=== PATIENT | male | born 1955 | race Caucasian/White ===

== ENCOUNTER 2016-08-07 12:33 | Emergency (ER) | payer BC ==
[2016-08-07] MEDS ORDERED: Aspirin 81 MG Tab.Chew PO ONE (12:55)
[2016-08-07] MEDS ORDERED: Sodium Chloride 0.9% 10 ML Syringe FLUSH PRN (12:55)
[2016-08-07] MEDS ORDERED: Alum Hydrox/Mag Hydrox/Simeth 30 ML, Lidocaine 2% 15 ML PO ONE ×2 (12:55)
[2016-08-07] MEDS ORDERED: Nitroglycerin 0.4 MG Tab.SL SL ONE ×2 (12:56→13:48)
[2016-08-07] MEDS ORDERED: Sodium Chloride 0.9% 1,000 ML IV SCH (13:00)
--- NOTE | 2016-08-07 13:01 | EDM.PDOC ---
ED HISTORY OF PRESENT ILLNESS - General Chief Complaint: Chest Pain Stated Complaint: CHEST PAIN Time Seen by Provider: 08/07/16 12:42 Source of Information: Reports: Patient History Limitations: Reports: No limitations - History of Present Illness INITIAL COMMENTS - FREE TEXT/NARRATIVE: Patient is a 61-year-old male with a history of coronary disease and stent placement to the left LAD. States had a stress test completed 3 weeks ago with negative results. He is scheduled to have coronary angiogram this coming Friday to further evaluate concerns of blockage to his right coronary artery. Patient states he's been having chest discomfort intermittently over the past few weeks. States today he became nauseated and pain to his chest has increased with radiation to his neck and his left arm. He became diaphoretic. Pain is constant rated a 7/10. Describes the pain as a dull ache. It is worsened with taking a deep breath. Similar pain in the past with previous NE. Normally the pain will decrease with relaxing. Has taken 81 mg aspirin prior to arrival. Has not taking any additional medications. Again this that started approximately 10:00 this morning while sitting. Additional history of acid reflux and normally takes PPI. Denies any SOB of breath, dizziness, lightheadedness, hx DVT/PE, leg swelliing, recent long travel, recent hospitalization, recent surgery, hemoptysis, or cancer. PMH: DM Type 1, HTN. Hypercholesteremia. One kidney. - Related Data Allergies/ADRs: Allergies Allergy/AdvReac Type Severity Reaction Status Date / Time No Known Allergies Allergy Verified 08/12/14 07:21 Home Meds: Home Meds Aspirin [Halfprin] 81 mg PO DAILY 08/07/16 [History] Fosinopril [Monopril] 20 mg PO DAILY 08/07/16 [History] Nabumetone 2,000 mcg PO DAILY 08/07/16 [History] Omeprazole 20 mg PO DAILY 08/07/16 [History] Pregabalin [Lyrica] 100 mg PO TID 08/07/16 [History] Sertraline [Zoloft] 100 mg PO DAILY 08/07/16 [History] Simvastatin [Zocor] 10 mg PO DAILY 08/07/16 [History] Past Medical History HEENT History: Reports: Impaired vision Other HEENT History: wears eyeglasses Cardiovascular History: Reports: CAD, High cholesterol, Hypertension, Stents Other Cardiovascular History: LAD stent 2014. Gastrointestinal History: Reports: GERD Genitourinary History: Reports: Other (see below) Other Genitourinary History: born with only one kidney Musculoskeletal History: Reports: Arthritis, Back pain, chronic, Fracture Psychiatric History: Reports: Depression Endocrine/Metabolic History: Reports: Diabetes, type I Dermatologic History: Reports: Psoriasis - Infectious Disease History Infectious Disease History: Reports: Chicken pox, Measles, Mumps - Past Surgical History GI Surgical History: Reports: Cholecystectomy, Colonoscopy Social & Family History - Tobacco Use Smoking Status *Q: Former Smoker Used Tobacco, but Quit: Yes Month Tobacco Last Used: 1975 Second Hand Smoke Exposure: Yes - Caffeine Use Caffeine Use: Reports: Coffee - Recreational Drug Use Recreational Drug Use: No - Living Situation & Occupation Living situation: Reports: Occupation: employed ED ROS GENERAL - Review of Systems Review Of Systems: ROS reveals no pertinent complaints other than HPI. ED EXAM, GENERAL - Physical Exam Exam: See Below Exam Limited By: No limitations General Appearance: alert, WD/WN, no apparent distress Eye Exam: bilateral eye: PERRL Ears: hearing grossly normal Nose: normal inspection Throat/Mouth: Normal inspection, Normal voice, No airway compromise Head: atraumatic, normocephalic Neck: normal inspection, supple, other (no jvd) Respiratory/Chest: no respiratory distress, lungs clear, normal breath sounds, no accessory muscle use, chest non-tender Cardiovascular: normal peripheral pulses, regular rate, rhythm, no murmur Peripheral Pulses: 2+: radial (L), radial (R) GI/Abdominal: normal bowel sounds, soft, non tender, no organomegaly, no distention Back Exam: normal inspection. No: CVA tenderness (L), CVA tenderness (R) Extremities: normal inspection, non-tender, no pedal edema, normal capillary refill Neurological: alert, oriented, CN II-XII intact, normal cognition, no motor/ sensory deficits Psychiatric: normal affect, normal mood Skin Exam: Warm, Dry, Intact, Normal color Course - Vital Signs Last Recorded V/S: Last Vital Signs Temp 97.3 F 08/07/16 12:43 Pulse 60 08/07/16 12:43 Resp 20 08/07/16 12:43 BP 122/66 08/07/16 14:10 Pulse Ox 98 08/07/16 12:43 - Orders/Labs/Meds Orders: Active Orders 24 hr Category Date Time Status EKG 12 Lead [EKG Documentation Completion] [RC] STAT Care 08/07/16 12:42 Active EKG Documentation Completion [RC] STAT Care 08/07/16 14:31 Active EKG Documentation Completion [RC] STAT Care 08/07/16 14:41 Active Peripheral IV Care [RC] . DIRECTED Care 08/07/16 12:55 Active Peripheral IV Insertion Adult [OM.PC] Stat Oth 08/07/16 12:55 Ordered Labs: Laboratory Tests 08/07/16 08/07/16 08/07/16 Range/Units 12:45 12:45 12:45 WBC 6.34 (4.23-9.07) K/mm3 RBC 4.95 (4.63-6.08) M/mm3 Hgb 14.2 (13.7-17.5) gm/L Hct 42.9 (40.1-51.0) % MCV 86.7 (79.0-92.2) fl MCH 28.7 (25.7-32.2) pg MCHC 33.1 (32.2-35.5) g/dl RDW Std Deviation 42.3 (35.1-43.9) fL Plt Count 149 L (163-337) K/mm3 MPV 11.7 (9.4-12.3) fl Neut % (Auto) 77.0 H (34.0-67.9) % Lymph % (Auto) 13.7 L (21.8-53.1) % [place] % (Auto) 7.7 (5.3-12.2) % Eos % (Auto) 1.1 (0.8-7.0) Baso % (Auto) 0.2 (0.1-1.2) % Neut # (Auto) 4.88 (1.78-5.38) K/mm3 Lymph # (Auto) 0.87 L (1.32-3.57) K/mm3 [place] # (Auto) 0.49 (0.30-0.82) K/mm3 Eos # (Auto) 0.07 (0.04-0.54) K/mm3 Baso # (Auto) 0.01 (0.01-0.08) K/mm3 PT 10.5 (8.0-13.0) SECONDS INR 0.97 APTT (22-36) SECONDS Sodium 141 (136-145) mEq/L Potassium 4.8 (3.5-5.1) mEq/L Chloride 106 (98-107) mEq/L Carbon Dioxide 28 (21-32) mEq/L Anion Gap 11.8 (5-15) BUN 18 (7-18) mg/dL Creatinine 1.2 (0.7-1.3) mg/dL Est Cr Clr Drug Dosing 70.59 mL/min Estimated GFR (MDRD) > 60 (>60) mL/min BUN/Creatinine Ratio 15.0 (14-18) Glucose 130 H (74-106) mg/dL Calcium 8.7 (8.5-10.1) mg/dL Total Bilirubin 0.6 (0.2-1.0) mg/dL AST 24 (15-37) U/L ALT 30 (16-63) U/L Alkaline Phosphatase 103 (46-116) U/L CK-MB (CK-2) (0-3.6) ng/ml Troponin I (0.00-0.056) ng/mL C-Reactive Protein 1.5 H* (<1.0) mg/dL Total Protein 6.8 (6.4-8.2) g/dl Albumin 3.8 (3.4-5.0) g/dl Globulin 3.0 gm/dL Albumin/Globulin Ratio 1.3 (1-2) Lipase 50 L (73-393) U/L TSH 3rd Generation 1.700 (0.358-3.74) uIU/mL 08/07/16 08/07/16 08/07/16 Range/Units 12:45 12:45 12:45 WBC (4.23-9.07) K/mm3 RBC (4.63-6.08) M/mm3 Hgb (13.7-17.5) gm/L Hct (40.1-51.0) % MCV (79.0-92.2) fl MCH (25.7-32.2) pg MCHC (32.2-35.5) g/dl RDW Std Deviation (35.1-43.9) fL Plt Count (163-337) K/mm3 MPV (9.4-12.3) fl Neut % (Auto) (34.0-67.9) % Lymph % (Auto) (21.8-53.1) % [place] % (Auto) (5.3-12.2) % Eos % (Auto) (0.8-7.0) Baso % (Auto) (0.1-1.2) % Neut # (Auto) (1.78-5.38) K/mm3 Lymph # (Auto) (1.32-3.57) K/mm3 [place] # (Auto) (0.30-0.82) K/mm3 Eos # (Auto) (0.04-0.54) K/mm3 Baso # (Auto) (0.01-0.08) K/mm3 PT (8.0-13.0) SECONDS INR APTT 29 (22-36) SECONDS Sodium (136-145) mEq/L Potassium (3.5-5.1) mEq/L Chloride (98-107) mEq/L Carbon Dioxide (21-32) mEq/L Anion Gap (5-15) BUN (7-18) mg/dL Creatinine (0.7-1.3) mg/dL Est Cr Clr Drug Dosing mL/min Estimated GFR (MDRD) (>60) mL/min BUN/Creatinine Ratio (14-18) Glucose (74-106) mg/dL Calcium (8.5-10.1) mg/dL Total Bilirubin (0.2-1.0) mg/dL AST (15-37) U/L ALT (16-63) U/L Alkaline Phosphatase (46-116) U/L CK-MB (CK-2) 4.1 H (0-3.6) ng/ml Troponin I < 0.017 (0.00-0.056) ng/mL C-Reactive Protein (<1.0) mg/dL Total Protein (6.4-8.2) g/dl Albumin (3.4-5.0) g/dl Globulin gm/dL Albumin/Globulin Ratio (1-2) Lipase (73-393) U/L TSH 3rd Generation (0.358-3.74) uIU/mL Meds: Medications Discontinued Medications Generic Name Dose Route Start Last Admin Trade Name Freq PRN Reason Stop Dose Admin Aspirin 243 mg 08/07/16 12:55 08/07/16 13:15 Aspirin PO 08/07/16 12:56 243 mg ONETIME ONE Administration Al Hydroxide/Mg Hydroxide 30 0 ml 08/07/16 12:55 08/07/16 13:14 ml/ Lidocaine HCl 15 ml PO 08/07/16 12:56 30 ml ONETIME ONE Administration Fentanyl 100 mcg 08/07/16 13:46 08/07/16 14:11 Sublimaze IVPUSH 08/07/16 13:47 100 mcg ONETIME ONE Administration Sodium Chloride 1,000 mls @ 75 mls/hr 08/07/16 13:00 08/07/16 13:20 Normal Saline IV 75 mls/hr ASDIRECTED JENNY Administration Morphine Sulfate 2 mg 08/07/16 14:25 08/07/16 14:42 Morphine IVPUSH 08/07/16 14:26 2 mg ONETIME ONE Administration Nitroglycerin 0.4 mg 08/07/16 12:56 08/07/16 13:20 Nitrostat SL 08/07/16 12:57 0.4 mg ONETIME ONE Administration Nitroglycerin 0.4 mg 08/07/16 13:48 08/07/16 14:10 Nitrostat SL 08/07/16 13:49 0.4 mg ONETIME ONE Administration Sodium Chloride 10 ml 08/07/16 12:55 08/07/16 15:03 Saline Flush FLUSH 10 ml ASDIRECTED PRN Administration Keep Vein Open - Re-Assessments/Exams Free Text/Narrative Re-Assessment/Exam: Ordered IV with normal saline 75 mL per hour, aspirin 243, nitroglycerin 0.4 sublingual tabs, GI cocktail, CBC, chem 14, CRP, lipase, chest x-ray, EKG, troponin, TSH, PTT. We'll see how the discomfort responds to the nitroglycerin and GI cocktail. Must closely monitor BP if involving RCA. EKG revealed a sinus rhythm at a rate of 62 with a normal P axis. Left axis deviation noted. LA 142, QTC is 426. No acute ST changes noted. 08/07/16 13:45 Labs reviewed: CBC and chem 14 were essentially normal. CRP was mildly elevated 1.5. Lipase 50. TSH within normal limits. Troponin and CK -MB were ordered. Reassessment, pain has not improved. Ordered nitroglycerin tab 0.4 mg sublingual and fentanyl 100 mcg. Chest x-ray: Revealed mild cardiomegaly without increased pulmonary vascularization. No noted abnormalities to aortic arch or widening of mediastinum. No pneumothorax. 08/07/16 14:26 Toponin <0.017. Pain to chest 7/10, slightly worse. Ordered morphine 2 mg IVP. Vital signs stable: Left 130/75, Right 106/69. No tissues abnormalities or valvular disorders no history of aortic aneurysm. Ordered EKG. 08/07/16 14:30 Called [facility], vocational services specialist grab hooker is in the seed laboratory technician. He requests patient be transferred to the [facility] ER for further evaluation. Dr. Sorensen Emergency Physician has accepted the patient. 1430 Reassessment, patient has not received the morphine yet. States the discomfort to his chest has decreased to 5/10. Will obtain additional EKG. Discussed patient being transferred by air to [facility]. Patient refuses and would rather go by ground. 1450 Reassessment, chest pain 3/10 with morphine. Ambulance has been notified. 08/07/16 14:52 Repeat EKG sinus rhythm, normal P axis, borderline left axis deviation, rate of 55, LA interval 153, QTC 435, no acute ST changes noted. EKG obtained on the right side normal sinus rhythm at rate of 57, normal P axis , right ventricular hypertrophy, rate of 57, LA interval 53, QTC 430, no acute ST changes noted. [facility] Departure - Departure Time of Disposition: 14:54 Disposition: DC/Tfer to Acute Hospital 02 Reason for Transfer *Q: Other Condition: fair Clinical Impression: Unstable angina CAD (coronary artery disease) Qualifiers: Coronary Disease-Associated Artery/Lesion type: unspecified vessel or lesion type [place] vs. transplanted heart: [place] heart Associated angina: with unstable angina Qualified Code(s): I25.110 - Atherosclerotic heart disease of [place] coronary artery with unstable angina pectoris Referrals: Krishan Franco MD [Primary Care Provider] - Forms: ED Department Discharge - My Orders Last 24 Hours: My Active Orders 08/07/16 12:55 Peripheral IV Care [RC] . DIRECTED Peripheral IV Insertion Adult [OM.PC] Stat 08/07/16 14:31 EKG Documentation Completion [RC] STAT 08/07/16 14:41 EKG Documentation Completion [RC] STAT - Assessment/Plan Last 24 Hours: My Active Orders 08/07/16 12:55 Peripheral IV Care [RC] . DIRECTED Peripheral IV Insertion Adult [OM.PC] Stat 08/07/16 14:31 EKG Documentation Completion [RC] STAT 08/07/16 14:41 EKG Documentation Completion [RC] STAT
--- NOTE | 2016-08-07 13:32 | CR ---
Chest: Two views of the chest were obtained. Comparison: Previous chest x-ray of 09/27/09. Heart size and mediastinum are normal. Lungs are clear. Bony structures are unremarkable for the patient's age. Impression: 1. Nothing acute is identified on two-view chest x-ray. Diagnostic code #1
[2016-08-07] MEDS ORDERED: fentaNYL 100 MCG/2 ML SDV IVPUSH ONE (13:46)
[2016-08-07 14:10] VITALS: BP 122/66
[2016-08-07] MEDS ORDERED: Morphine 2 MG/ML Syringe IVPUSH ONE (14:25)
== END 2016-08-07 15:30 ==
LOC: JD.ED 12:33
DX: I25.110 Atherosclerotic heart disease of native coronary artery with unstable angina pectoris (principal); Z95.5 Presence of coronary angioplasty implant and graft; I10 Essential (primary) hypertension; E78.00 Pure hypercholesterolemia, unspecified; E10.9 Type 1 diabetes mellitus without complications; F32.9 Major depressive disorder, single episode, unspecified; M19.90 Unspecified osteoarthritis, unspecified site; K21.9 Gastro-esophageal reflux disease without esophagitis; L40.9 Psoriasis, unspecified; Z90.49 Acquired absence of other specified parts of digestive tract; Z87.891 Personal history of nicotine dependence; Z79.82 Long term (current) use of aspirin; Z79.899 Other long term (current) drug therapy
CPT/HCPCS: 36415; 71020; 80053; 82553; 83690; 84443; 84484; 85025; 85610; 85730; 86140; 93005; 96361; 96374; 96375; 99285; A9270; J2270; J3010; J7040; J7050; 99284

== ENCOUNTER 2017-02-10 14:31 | Emergency (ER) | payer OTHER, BC ==
[2017-02-10 14:40] VITALS: BP 143/93
[2017-02-10] MEDS ORDERED: Ondansetron 4 MG/2 ML SDV IVPUSH ONE (14:49)
[2017-02-10] MEDS ORDERED: HYDROmorphone 0.5 MG/0.5 ML Syringe IVPUSH ONE ×2 (14:49→15:38)
[2017-02-10] MEDS ORDERED: Sodium Chloride 0.9% 1,000 ML IV ONE (14:49)
[2017-02-10] MEDS: Sodium Chloride 0.9% 10 ML Syringe FLUSH PRN ×2 (15:06→15:51)
--- NOTE | 2017-02-10 15:07 | EDM.PDOC ---
ED HPI GENERAL MEDICAL PROBLEM - General Chief Complaint: Upper Extremity Injury/Pain Stated Complaint: [facility] Time Seen by Provider: 02/10/17 14:45 Source of Information: Reports: Patient History Limitations: Reports: No Limitations - History of Present Illness INITIAL COMMENTS - FREE TEXT/NARRATIVE: Patient is a 62-year-old male who presents to the ED complaining of left sided back, cervical spine, left shoulder, and left lateral chest discomfort after falling on the ice. Patient was applying ice melt when he lost his balance and fell straight backwards landing on the affected side. He did not hit his head nor did he lose consciousness. 911 was contacted to evaluate the patient and transport to the ED. Patient was placed on a long spinal board with no c-collar in place. He did not complain of any neck discomfort while on scene. Patient is a diabetic with insulin pump in place. Pain is currently rated a 10+ with examination. He denies any vision changes, nausea/vomiting, headache, numbness or tingling, abdominal pain, or any additional complaints to his lower extremities. Left Shoulder Pain Score (Numeric/FACES): 9 - Related Data Allergies Allergy/AdvReac Type Severity Reaction Status Date / Time No Known Allergies Allergy Verified 02/10/17 14:40 Home Meds: Home Meds Aspirin [Halfprin] 81 mg PO DAILY 08/07/16 [History] Fosinopril [Monopril] 20 mg PO DAILY 08/07/16 [History] Nabumetone 2,000 mcg PO DAILY 08/07/16 [History] Omeprazole 20 mg PO DAILY 08/07/16 [History] Pregabalin [Lyrica] 100 mg PO TID 08/07/16 [History] Sertraline [Zoloft] 100 mg PO DAILY 08/07/16 [History] Simvastatin [Zocor] 10 mg PO DAILY 08/07/16 [History] Acetaminophen/HYDROcodone [[place] 325-5 MG] 1 tab PO Q6H PRN #20 tablet 02/10/17 [Rx] Non-Formulary Medication [NF Drug] 1 unit SUBCUT DAILY 02/10/17 [History] Past Medical History HEENT History: Reports: Impaired Vision Other HEENT History: wears eyeglasses Cardiovascular History: Reports: CAD, High Cholesterol, Hypertension, Stents Other Cardiovascular History: LAD stent 2014. Gastrointestinal History: Reports: GERD Genitourinary History: Reports: Other (See Below) Other Genitourinary History: born with only one kidney Musculoskeletal History: Reports: Arthritis, Back Pain, Chronic, Fracture Psychiatric History: Reports: Depression Endocrine/Metabolic History: Reports: Diabetes, Type I Dermatologic History: Reports: Psoriasis - Infectious Disease History Infectious Disease History: Reports: Chicken Pox, Measles, Mumps - Past Surgical History Cardiovascular Surgical History: Reports: Coronary Artery Stent GI Surgical History: Reports: Cholecystectomy, Colonoscopy Social & Family History - Tobacco Use Smoking Status *Q: Former Smoker Used Tobacco, but Quit: Yes Month Tobacco Last Used: 1975 Second Hand Smoke Exposure: Yes - Caffeine Use Caffeine Use: Reports: Coffee - Recreational Drug Use Recreational Drug Use: No - Living Situation & Occupation Living situation: Reports: Occupation: Employed Review of Systems - Review of Systems Review Of Systems: ROS reveals no pertinent complaints other than HPI. ED EXAM, GENERAL - Physical Exam Exam: See Below Exam Limited By: No Limitations General Appearance: Alert, WD/WN, Severe Distress Eye Exam: Bilateral Eye: EOMI, PERRL Ears: Normal External Exam, Hearing Grossly Normal Nose: Normal Inspection, Normal Mucosa, No Blood Throat/Mouth: Normal Inspection, Normal Oropharynx, Normal Voice, No Airway Compromise Head: Atraumatic, Normocephalic Neck: Normal Inspection, Supple, Tender Lateral (base of the neck), Tender Midline (C5-C6 midline) Respiratory/Chest: No Respiratory Distress, Lungs Clear, No Accessory Muscle Use , Other (Left lateral chest nipple line.) Cardiovascular: Normal Peripheral Pulses, Regular Rate, Rhythm Peripheral Pulses: 2+: Radial (L), Radial (R) GI/Abdominal: Normal Bowel Sounds, Soft, No Organomegaly, No Distention, Tender (Left upper quadrant) Back Exam: Normal Inspection, Other (Pain to the left lateral scapula increased with palpation. No bony abnormalities. No swelling, ecchymosis, lesions present. ). No: Paraspinal Tenderness, Vertebral Tenderness Extremities: Other (Pain to the anterior/lateral/posterior shoulder worse with palpation. No bony abnormalities, swelling, ecchymosis present. Decreased range of motion secondary to pain. Limited exam. No clavicle pain or a/c joint discomfort.) Neurological: Alert, Oriented, CN II-XII Intact, Normal Cognition, No Motor/ Sensory Deficits Psychiatric: Normal Affect, Normal Mood Skin Exam: Warm, Dry, Intact, Normal Color, No Rash Course - Vital Signs Last Recorded V/S: Last Vital Signs Temp 99.2 F 02/10/17 14:36 Pulse 82 02/10/17 14:36 Resp 20 02/10/17 14:36 BP 143/93 H 02/10/17 14:36 Pulse Ox 100 02/10/17 14:36 - Orders/Labs/Meds Labs: Laboratory Tests 02/10/17 02/10/17 02/10/17 Range/Units 14:40 14:40 14:55 WBC 6.12 (4.23-9.07) K/mm3 RBC 4.81 (4.63-6.08) M/mm3 Hgb 13.7 (13.7-17.5) gm/L Hct 41.0 (40.1-51.0) % MCV 85.2 (79.0-92.2) fl MCH 28.5 (25.7-32.2) pg MCHC 33.4 (32.2-35.5) g/dl RDW Std Deviation 40.4 (35.1-43.9) fL Plt Count 122 L (163-337) K/mm3 MPV 11.0 (9.4-12.3) fl Neut % (Auto) 76.5 H (34.0-67.9) % Lymph % (Auto) 15.0 L (21.8-53.1) % [place] % (Auto) 6.9 (5.3-12.2) % Eos % (Auto) 1.1 (0.8-7.0) Baso % (Auto) 0.2 (0.1-1.2) % Neut # (Auto) 4.68 (1.78-5.38) K/mm3 Lymph # (Auto) 0.92 L (1.32-3.57) K/mm3 [place] # (Auto) 0.42 (0.30-0.82) K/mm3 Eos # (Auto) 0.07 (0.04-0.54) K/mm3 Baso # (Auto) 0.01 (0.01-0.08) K/mm3 Sodium 142 (136-145) mEq/L Potassium 4.1 (3.5-5.1) mEq/L Chloride 104 (98-107) mEq/L Carbon Dioxide 28 (21-32) mEq/L Anion Gap 14.1 (5-15) BUN 16 (7-18) mg/dL Creatinine 1.1 (0.7-1.3) mg/dL Est Cr Clr Drug Dosing 76.06 mL/min Estimated GFR (MDRD) > 60 (>60) mL/min BUN/Creatinine Ratio 14.5 (14-18) Glucose 186 H (74-106) mg/dL POC Glucose 178 H (70-105) mg/dL Calcium 8.5 (8.5-10.1) mg/dL Total Bilirubin 0.5 (0.2-1.0) mg/dL AST 21 (15-37) U/L ALT 30 (16-63) U/L Alkaline Phosphatase 116 (46-116) U/L C-Reactive Protein 0.9 (<1.0) mg/dL Total Protein 6.8 (6.4-8.2) g/dl Albumin 3.4 (3.4-5.0) g/dl Globulin 3.4 gm/dL Albumin/Globulin Ratio 1.0 (1-2) Lipase 50 L (73-393) U/L Meds: Medications Discontinued Medications Generic Name Dose Route Start Last Admin Trade Name Freq PRN Reason Stop Dose Admin Hydromorphone HCl 0.5 mg 02/10/17 14:49 02/10/17 15:04 Dilaudid IVPUSH 02/10/17 14:50 0.5 mg ONETIME ONE Administration Hydromorphone HCl 0.5 mg 02/10/17 15:38 02/10/17 15:41 Dilaudid IVPUSH 02/10/17 15:39 0.5 mg ONETIME ONE Administration Sodium Chloride 1,000 mls @ 150 mls/hr 02/10/17 14:49 02/10/17 15:02 Normal Saline IV 02/10/17 21:28 150 mls/hr ONETIME ONE Administration Iopamidol 125 ml 02/10/17 15:42 02/10/17 15:52 Isovue-300 (61%) IVPUSH 02/10/17 15:43 125 ml ONETIME ONE Administration Ondansetron HCl 4 mg 02/10/17 14:49 02/10/17 15:03 Zofran IVPUSH 02/10/17 14:50 4 mg ONETIME ONE Administration Sodium Chloride 10 ml 02/10/17 14:50 02/10/17 15:51 Saline Flush FLUSH 10 ml ASDIRECTED PRN Administration Keep Vein Open Sodium Chloride 10 ml 02/10/17 15:42 Saline Flush FLUSH ONETIME PRN IV FLUSH - Re-Assessments/Exams Free Text/Narrative Re-Assessment/Exam: C collar placed due to pain with palpation of the cervical spine. IV will be established with normal saline 150 mL per hour, Dilaudid 0.5 mg IVP, and Zofran 4 mg IVP. Initial labs and studies include CBC, chem 14, CRP, lipase , CT cervical spine without contrast, chest abdomen pelvis with IV contrast, chest x-ray, and x-ray of the left shoulder. Chest x-ray, shoulder x-ray, and CT of the cervical spine will be obtained prior to lab results. Patient recently had stent to one of his coronary arteries approximate one week ago. I am concerned that his kidney function has decreased with the contrast that was administered. He has only one kidney. Once lab results are back and we can evaluate for kidney function and will go ahead and obtain CT of the chest abdomen and pelvis. Patient recently had stent to one of his coronary arteries approximate one week ago. 02/10/17 15:35 CT the cervical spine impression: Incidental findings. Nothing acute is seen on CT study of the cervical spine. Cr currently back at 1.1. Ordered additional 0.5 mg IVP of Dilaudid for pain. Additional CT studies are being obtained at this point. 02/10/17 16:43 CT of the chest impression: Minimal deformity within the fourth through seventh left-sided ribs laterally. Findings could represent either acute or old fractures. Please correlate with patient's symptoms. Other incidental findings as noted above. ( Very minimal cortical irregularity seen within the fourth through seventh ribs on the left side with lateral location.) CT abdomen and pelvis impression: Absent left kidney. Other findings as noted above which are felt to be fairly stable from prior CT study to 511. 1715 Reassessment, patient's pain has improved with the above therapies. Will discharge patient home with instructions as documented. Departure - Departure Time of Disposition: 17:34 Disposition: Home, Self-Care 01 Condition: Good Clinical Impression: Cervical pain (neck) Ribs, multiple fractures Qualifiers: Encounter type: initial encounter Fracture type: closed Laterality: left Qualified Code(s): S22.42XA - Multiple fractures of ribs, left side, initial encounter for closed fracture Left shoulder strain Qualifiers: Encounter type: initial encounter Qualified Code(s): S46.912A - Strain of unspecified muscle, fascia and tendon at shoulder and upper arm level, left arm , initial encounter Contusion, back Qualifiers: Encounter type: initial encounter Laterality: left Qualified Code(s): S20.222A - Contusion of left back wall of thorax, initial encounter - Discharge Information Prescriptions: Acetaminophen/HYDROcodone [[place] 325-5 MG] 1 tab PO Q6H PRN #20 tablet PRN Reason: Pain (Severe 7-10) Instructions: Cervical Strain and Sprain With Rehab-SportsMed, Contusion, Rib Fracture Referrals: Krishan Franco MD [Primary Care Provider] - Forms: ED Department Discharge, ED Return to Work/School Form Additional Instructions: As discussed it appears he have left-sided rib fractures that are nondisplaced. Treatment is symptomatic care including: Ice to affected area as needed throughout the day. Take Tylenol 650 mg every 6 hours for pain. For severe pain not managed with the above therapies take [place] one tab every 6 hours as needed. Do not take Tylenol [place] together. Do not drive while taking the [place]. Do not drive this evening since receiving a sedative medication while in the ED. Take miralax 1 capful everyday while taking norco. Refrain from any activities that cause worsening pain. Apply ice to the left shoulder as needed throughout the day. Follow-up with orthopedic surgeon in the next 10-14 days for reevaluation if shoulder symptoms are not improving. Return to ED for any new or worsening symptoms. In addition suggest using incentive spirometry every hour while awake to reduce the chance of developing pneumonia.
--- NOTE | 2017-02-10 15:36 | CT ---
CT cervical spine Technique: Multiple axial sections were obtained from above C1 inferiorly to the bottom of T1. Reconstructed sagittal and coronal images were reviewed. Findings: Posterior skull base appears intact. Vertebral body heights and disc spaces are maintained. Linear lucency noted on the right side within the lamina near the junction to the articular mass. This is believed to be artifact and not representing fracture. Other portions of the vertebral bodies and posterior arches are intact. No fracture is appreciated. No bony central or bony neural foraminal stenosis is seen. No abnormal subluxation is seen on the reconstructed sagittal images. Minimal degenerative change within the uncovertebral joints noted in the left side at C4-C5. Impression: 1. Incidental findings. Nothing acute is seen on CT study of the cervical spine. Diagnostic code #2
[2017-02-10] MEDS ORDERED: Sodium Chloride 0.9% 10 ML Syringe FLUSH PRN (15:42)
[2017-02-10] MEDS ORDERED: Iopamidol 612 MG/ML 150 ML Bottle IVPUSH ONE (15:42)
--- NOTE | 2017-02-10 16:40 | CT ---
CT chest Technique: Multiple axial sections through the chest were obtained. Intravenous contrast was utilized. Findings: Very minimal cortical irregularity is seen within the fourth through seventh ribs on the left side within a lateral location. Findings may represent old or acute nondisplaced rib fractures. Please correlate with the patient's symptoms. Slight atelectasis is seen posteriorly which is felt to be due to dependent atelectasis within both lungs. Lungs otherwise are clear. Mediastinum and hilar regions show no adenopathy or mass. Coronary artery stent is seen. No pericardial thickening is identified. Thoracic spine shows slight degenerative spurring within the lower levels. Mild degenerative change is noted at the sternomanubrial junction. No scapular fracture or other scapular abnormality is seen. Soft tissues around the scapula appear unremarkable. Impression: 1. Minimal deformity within the fourth through seventh left sided ribs laterally. Findings could represent either acute or old fractures. Please correlate with the patient's symptoms. 2. Other incidental findings as noted above. Diagnostic code #3 CT abdomen and pelvis Technique: Multiple axial sections were obtained from above the dome of the diaphragm inferiorly through the pubic symphysis. Intravenous contrast was utilized. No oral contrast has been given. Comparison: Previous CT abdomen and pelvis study of 06/01/10. Findings: Small low-density lesion is noted within the right lobe of the liver which appears fairly stable from prior exam possibly due to hemangioma. Several smaller abnormalities are seen within the right lobe of the liver believed to be incidental. Spleen is slightly enlarged at 14.3 cm in length. This is a stable finding from prior exam. Adrenal glands show no nodule. Pancreas is somewhat atrophied. Previous cholecystectomy is noted. Very minimal intrahepatic biliary duct dilatation is seen which is felt to be incidental. Left kidney is absent. Right kidney shows contrast enhancement without hydronephrosis or mass. Aorta shows no aneurysmal dilatation. No retroperitoneal adenopathy or mesenteric abnormalities are seen. Appendix is seen which appears normal. No pelvic mass or adenopathy is seen. Delayed images shows contrast within the distal right ureter and within the bladder. Bone window settings were reviewed which shows degenerative change within the lumbar spine with vacuum phenomena at L3-L4 and L4-L5 and scattered endplate osteophytes as well as disc space narrowing at L4-L5. Impression: 1. Absent left kidney. 2. Other findings as noted above which are felt to be fairly stable from prior CT exam of 05/12/10. 3. Nothing acute is appreciated. Diagnostic code #2
--- NOTE | 2017-02-11 07:48 | CR ---
Chest: Supine view of the chest was obtained. Comparison: Prior chest of 08/07/16. Heart size is within normal limits. Widened mediastinum is seen likely relating to supine technique. Lungs are clear. Bony structures are grossly intact. Surgical clips are seen from prior cholecystectomy. Impression: 1. Incidental findings. Nothing acute identified on supine chest x-ray. Diagnostic code #2
--- NOTE | 2017-02-11 07:48 | CR ---
Left shoulder: Two views of the left shoulder were obtained. Comparison: No prior shoulder study. Glenohumeral joint and acromioclavicular joint appear within normal limits. No fracture or other bony abnormality is seen. Impression: 1. No abnormality is identified on two-view left shoulder study. Diagnostic code #1
== END 2017-02-10 18:00 | disposition home or self-care (01) ==
LOC: JD.ED 14:31
DX: S22.42XA Multiple fractures of ribs, left side, initial encounter for closed fracture (principal); S46.912A Strain of unspecified muscle, fascia and tendon at shoulder and upper arm level, left arm, initial encounter; S20.222A Contusion of left back wall of thorax, initial encounter; E78.00 Pure hypercholesterolemia, unspecified; I10 Essential (primary) hypertension; K21.9 Gastro-esophageal reflux disease without esophagitis; E10.9 Type 1 diabetes mellitus without complications; F32.9 Major depressive disorder, single episode, unspecified; Z79.82 Long term (current) use of aspirin; Z79.899 Other long term (current) drug therapy; Z87.891 Personal history of nicotine dependence
CPT/HCPCS: 36415; 71010; 71260; 72125; 73030; 74177; 80053; 82962; 83690; 85025; 86140; 96361; 96374; 96375; 96376; 99285; J1170; J2405; J7040; J7050; Q9967

== ENCOUNTER 2019-01-23 06:48 | Emergency (ER) | payer BC ==
[2019-01-23] MEDS ORDERED: Sodium Chloride 0.9% 10 ML Syringe FLUSH PRN (07:12)
[2019-01-23] MEDS ORDERED: Dextrose 5%-Lactated Ringers 1,000 ML IV SCH (07:15)
[2019-01-23] MEDS ORDERED: Ondansetron 4 MG/2 ML SDV IVPUSH ONE ×2 (07:20→11:19)
[2019-01-23] MEDS ORDERED: HYDROmorphone 1 MG/ML Syringe IVPUSH ONE (07:20)
[2019-01-23] MEDS ORDERED: HYDROmorphone 0.5 MG/0.5 ML Syringe IVPUSH ONE ×3 (08:00→11:31)
[2019-01-23] MEDS ORDERED: Metoclopramide 10 MG/2 ML SDV IVPUSH ONE ×2 (08:00→08:01)
[2019-01-23] MEDS ORDERED: Sodium Chloride 0.9% 1,000 ML IV SCH (08:45)
[2019-01-23 09:00] VITALS: BP 139/70; PULSE 76
--- NOTE | 2019-01-23 09:04 | EDM.PDOC ---
ED HPI GENERAL MEDICAL PROBLEM - General Chief Complaint: Abdominal Pain Stated Complaint: RT SIDE ABD PAIN Time Seen by Provider: 01/23/19 07:10 Source of Information: Reports: Patient, RN Notes Reviewed - History of Present Illness INITIAL COMMENTS - FREE TEXT/NARRATIVE: 64-year-old male comes in with worsening abdominal pain. He does have history of having appendectomy over 3 weeks ago which was found to be cancerous. There was a follow-up surgery about 12 days ago removing some surrounding colon And multiple lymph nodes which were all found to be negative for cancer. He has had abdominal pain since going home about a week or so ago. pain started getting much worse during the night and upon his awakening this morning he felt he needed to come in to the ED. his pain this morning is generalized but more intense left abdomen. He feels nauseated but has not been vomiting. Having some loose stools. No fever or chills. No chest pain or difficulty breathing. appetite has been diminished. He did not eat or drink much yesterday at all. The pain is worse with movement and coughing. Left Abdomen Pain Score (Numeric/FACES): 8 - Related Data Allergies Allergy/AdvReac Type Severity Reaction Status Date / Time No Known Allergies Allergy Verified 01/23/19 07:20 Home Meds: Home Meds Fosinopril [Monopril] 20 mg PO DAILY 08/07/16 [History] Omeprazole 20 mg PO DAILY 08/07/16 [History] Sertraline [Zoloft] 100 mg PO DAILY 08/07/16 [History] Clobetasol [Clobetasol Propionate 0.05% Cream] 15 gm TOP BID PRN 11/02/18 [ History] Desonide [Desowen] 60 gm TOP DAILY PRN 11/02/18 [History] Gabapentin [Neurontin] 300 mg PO QID 11/02/18 [History] Insulin Aspart [NovoLOG] 1 unit SQ ASDIRECTED 11/02/18 [History] Isosorbide Mononitrate [Imdur] 15 mg PO DAILY 11/02/18 [History] Nitroglycerin [Nitrostat] 0.4 mg SL ASDIRECTED PRN 11/02/18 [History] atorvaSTATin Calcium [Lipitor] 40 mg PO DAILY 11/02/18 [History] Acetaminophen/HYDROcodone [Blanco 325-5 MG] 1 tab PO Q4HR PRN 11/03/18 [History] Clobetasol [Temovate 0.05% Oint] 1 applic TOP BID 11/03/18 [History] Past Medical History HEENT History: Reports: Impaired Vision Other HEENT History: wears eyeglasses Cardiovascular History: Reports: CAD, High Cholesterol, Hypertension Other Cardiovascular History: LAD stent 2014. Gastrointestinal History: Reports: Colon Polyp, GERD Genitourinary History: Reports: Diabetic Nephropathy, Other (See Below) Other Genitourinary History: born with only one kidney Musculoskeletal History: Reports: Arthritis, Back Pain, Chronic, Fracture, Other (See Below) Other Musculoskeletal History: right arm fracture and left rib fx history Neurological History: Reports: Headaches, Chronic Psychiatric History: Reports: Anxiety, Depression, Panic Attack Endocrine/Metabolic History: Reports: Diabetes, Type I, Obesity/BMI 30+ Dermatologic History: Reports: Psoriasis - Infectious Disease History Infectious Disease History: Reports: Chicken Pox, Influenza, Measles, Mumps - Past Surgical History Cardiovascular Surgical History: Reports: Coronary Artery Stent GI Surgical History: Reports: Cholecystectomy, Colonoscopy Male Surgical History: Reports: Circumcision Neurological Surgical History: Reports: None Musculoskeletal Surgical History: Reports: None Social & Family History - Family History Family Medical History: Noncontributory Oncologic: Reports: Colon, Lung, Skin - Tobacco Use Smoking Status *Q: Never Smoker - Caffeine Use Caffeine Use: Reports: Coffee, Soda Other Caffeine Use: coffee 2-3 cups a day, soda 2 cans a day diet mountain dew - Living Situation & Occupation Living situation: Reports: , with Spouse, with Family (Son) Occupation: Disabled ED ROS GENERAL - Review of Systems Review Of Systems: See Below Constitutional: Denies: Fever, Chills, Diaphoresis HEENT: Reports: No Symptoms Respiratory: Denies: Shortness of Breath, Pleuritic Chest Pain Cardiovascular: Denies: Chest Pain Endocrine: Reports: Fatigue GI/Abdominal: Reports: Abdominal Pain, Diarrhea, Decreased Appetite. Denies: Hematochezia (Loose stools), Melena, Vomiting Musculoskeletal: Denies: Back Pain Skin: Reports: No Symptoms Neurological: Reports: Weakness (Generalized) ED EXAM, GI/ABD - Physical Exam Exam: See Below General Appearance: Alert, Moderate Distress Throat/Mouth: Normal Inspection, Other (Oral mucosa is dry) Neck: Supple Respiratory/Chest: No Respiratory Distress, Lungs Clear, Normal Breath Sounds Cardiovascular: Regular Rate, Rhythm GI/Abdominal Exam: Guarding, Rebound, Tender (Moderate diffuse tenderness) Extremities: Normal Inspection, Normal Range of Motion Neurological: Alert, Oriented, No Motor/Sensory Deficits Skin Exam: Warm, Dry, Normal Color, No Rash Course - Vital Signs Last Recorded V/S: Last Vital Signs Temp 98.5 F 01/23/19 07:15 Pulse 76 01/23/19 09:00 Resp 16 01/23/19 09:00 BP 139/70 01/23/19 09:00 Pulse Ox 93 L 01/23/19 09:00 - Orders/Labs/Meds Orders: Active Orders 24 hr Category Date Time Status Peripheral IV Care [RC] . DIRECTED Care 01/23/19 07:12 Active Peripheral IV Insertion Adult [OM.PC] Stat Oth 01/23/19 07:11 Ordered Labs: Laboratory Tests 01/23/19 01/23/19 01/23/19 Range/Units 07:27 07:27 07:27 WBC 9.08 H (4.23-9.07) K/mm3 RBC 4.93 (4.63-6.08) M/mm3 Hgb 14.0 D (13.7-17.5) gm/dl Hct 41.2 (40.1-51.0) % MCV 83.6 D (79.0-92.2) fl MCH 28.4 (25.7-32.2) pg MCHC 34.0 (32.2-35.5) g/dl RDW Std Deviation 39.1 (35.1-43.9) fL Plt Count 158 L (163-337) K/mm3 MPV 11.9 (9.4-12.3) fl Neut % (Auto) 83.8 H (34.0-67.9) % Lymph % (Auto) 6.9 L (21.8-53.1) % [place] % (Auto) 7.3 (5.3-12.2) % Eos % (Auto) 1.7 (0.8-7.0) Baso % (Auto) 0.1 (0.1-1.2) % Neut # (Auto) 7.61 H (1.78-5.38) K/mm3 Lymph # (Auto) 0.63 L (1.32-3.57) K/mm3 [place] # (Auto) 0.66 (0.30-0.82) K/mm3 Eos # (Auto) 0.15 (0.04-0.54) K/mm3 Baso # (Auto) 0.01 (0.01-0.08) K/mm3 Manual Slide Review Abnormal smear Sodium 137 (136-145) mEq/L Potassium 4.3 (3.5-5.1) mEq/L Chloride 101 (98-107) mEq/L Carbon Dioxide 25 (21-32) mEq/L Anion Gap 15.3 H (5-15) BUN 14 (7-18) mg/dL Creatinine 1.3 (0.7-1.3) mg/dL Est Cr Clr Drug Dosing 60.83 mL/min Estimated GFR (MDRD) 56 (>60) mL/min BUN/Creatinine Ratio 10.8 L (14-18) Glucose 190 H (80-115) mg/dL Lactic Acid (0.4-2.0) mmol/L Calcium 9.0 (8.5-10.1) mg/dL Total Bilirubin 1.2 H (0.2-1.0) mg/dL AST 14 L (15-37) U/L ALT 27 (16-63) U/L Alkaline Phosphatase 103 (46-116) U/L C-Reactive Protein 12.7 H* (<1.0) mg/dL Total Protein 7.0 (6.4-8.2) g/dl Albumin 3.2 L (3.4-5.0) g/dl Globulin 3.8 gm/dL Albumin/Globulin Ratio 0.8 L (1-2) Lipase (73-393) U/L 01/23/19 01/23/19 Range/Units 07:27 07:27 WBC (4.23-9.07) K/mm3 RBC (4.63-6.08) M/mm3 Hgb (13.7-17.5) gm/dl Hct (40.1-51.0) % MCV (79.0-92.2) fl MCH (25.7-32.2) pg MCHC (32.2-35.5) g/dl RDW Std Deviation (35.1-43.9) fL Plt Count (163-337) K/mm3 MPV (9.4-12.3) fl Neut % (Auto) (34.0-67.9) % Lymph % (Auto) (21.8-53.1) % [place] % (Auto) (5.3-12.2) % Eos % (Auto) (0.8-7.0) Baso % (Auto) (0.1-1.2) % Neut # (Auto) (1.78-5.38) K/mm3 Lymph # (Auto) (1.32-3.57) K/mm3 [place] # (Auto) (0.30-0.82) K/mm3 Eos # (Auto) (0.04-0.54) K/mm3 Baso # (Auto) (0.01-0.08) K/mm3 Manual Slide Review Sodium (136-145) mEq/L Potassium (3.5-5.1) mEq/L Chloride (98-107) mEq/L Carbon Dioxide (21-32) mEq/L Anion Gap (5-15) BUN (7-18) mg/dL Creatinine (0.7-1.3) mg/dL Est Cr Clr Drug Dosing mL/min Estimated GFR (MDRD) (>60) mL/min BUN/Creatinine Ratio (14-18) Glucose (80-115) mg/dL Lactic Acid 0.9 (0.4-2.0) mmol/L Calcium (8.5-10.1) mg/dL Total Bilirubin (0.2-1.0) mg/dL AST (15-37) U/L ALT (16-63) U/L Alkaline Phosphatase (46-116) U/L C-Reactive Protein (<1.0) mg/dL Total Protein (6.4-8.2) g/dl Albumin (3.4-5.0) g/dl Globulin gm/dL Albumin/Globulin Ratio (1-2) Lipase 27 L (73-393) U/L Meds: Medications Discontinued Medications Generic Name Dose Route Start Last Admin Trade Name Freq PRN Reason Stop Dose Admin Hydromorphone HCl 1 mg 01/23/19 07:20 01/23/19 07:34 Dilaudid IVPUSH 01/23/19 07:21 1 mg ONETIME ONE Administration Hydromorphone HCl 0.5 mg 01/23/19 08:00 01/23/19 08:09 Dilaudid IVPUSH 01/23/19 08:01 0.5 mg ONETIME ONE Administration Hydromorphone HCl 0.5 mg 01/23/19 08:01 01/23/19 08:20 Dilaudid IVPUSH 01/23/19 08:02 Not Given ONETIME ONE Hydromorphone HCl Confirm 01/23/19 11:23 01/23/19 11:33 Dilaudid Administered 01/23/19 11:24 Not Given Dose 0.5 mg .ROUTE .STK-MED ONE Hydromorphone HCl 0.5 mg 01/23/19 11:31 01/23/19 11:32 Dilaudid IVPUSH 01/23/19 11:32 0.5 mg ONETIME ONE Administration Dextrose/Lactated Ringer's 1,000 mls @ 999 mls/hr 01/23/19 07:15 01/23/19 07: 33 Dextrose 5%-Lactated Ringers IV 999 mls/hr ASDIRECTED JENNY Administration Sodium Chloride 1,000 mls @ 999 mls/hr 01/23/19 08:45 01/23/19 08:43 Normal Saline IV 999 mls/hr ONETIME JENNY Administration Metoclopramide HCl 5 mg 01/23/19 08:00 01/23/19 08:09 Reglan IVPUSH 01/23/19 08:01 5 mg ONETIME ONE Administration Metoclopramide HCl 5 mg 01/23/19 08:01 01/23/19 08:21 Reglan IVPUSH 01/23/19 08:02 Not Given ONETIME ONE Ondansetron HCl 4 mg 01/23/19 07:20 01/23/19 07:33 Zofran IVPUSH 01/23/19 07:21 4 mg ONETIME ONE Administration Ondansetron HCl 4 mg 01/23/19 11:19 01/23/19 11:26 Zofran IVPUSH 01/23/19 11:20 4 mg ONETIME ONE Administration Sodium Chloride 10 ml 01/23/19 07:12 01/23/19 07:35 Saline Flush FLUSH 10 ml ASDIRECTED PRN Administration Keep Vein Open - Re-Assessments/Exams Free Text/Narrative Re-Assessment/Exam: 01/23/19 10:43 WBC 9,000, 84 seg, 7L, 7M. CRP 12. Chem are relatively OK. Abd CT with IV and oral contrast show diffuse inflammatory change in the area of prior surgery. No small bowel dilatation appreciated. Radiology states "uncertain how much of the inflammatory change relates to previous surgery versus infection". See radiology report for further details. 01/23/19 13:02. I did discuss patient's sx, findings with Gen Blake. Surgeon rural electrification engineer for [facility], his surgeries were done by Dr Ariza. She is not concerned with the CT findings which are more positive than negative, postsurgical inflamation expected. I did push the images to [facility] so they will be available for Dr Ariza to review if sx worsen. She advises to let him go home on clear liquids and bland diet as tolerated. He does feel much better at time of discharge after IV fluids and meds. Departure - Departure Time of Disposition: 10:45 Disposition: Home, Self-Care 01 Condition: Fair Clinical Impression: Abdominal pain Qualifiers: Abdominal location: generalized Qualified Code(s): R10.84 - Generalized abdominal pain - Discharge Information Instructions: Abdominal Pain, Adult Referrals: PCP,Not In Area [Primary Care Provider] - Forms: ED Department Discharge Additional Instructions: Clear liquids as discussed until this evening, then very careful bland diet as tolerated. Try continue current medications as prescribed. Call Dr. Ariza if not better by tomorrow or if symptoms seem to be worsening again. Return to ED as needed. - My Orders Last 24 Hours: My Active Orders 01/23/19 07:11 Peripheral IV Insertion Adult [OM.PC] Stat 01/23/19 07:12 Peripheral IV Care [RC] . DIRECTED - Assessment/Plan Last 24 Hours: My Active Orders 01/23/19 07:11 Peripheral IV Insertion Adult [OM.PC] Stat 01/23/19 07:12 Peripheral IV Care [RC] . DIRECTED
--- NOTE | 2019-01-23 09:56 | CT ---
CT abdomen and pelvis Technique: Multiple axial sections were obtained from above the dome of the diaphragm inferiorly to the pubic symphysis. Intravenous and oral contrast was utilized. Comparison: Previous CT abdomen and pelvis exam of 11/02/18. Findings: Previous surgery is noted within the right colon. Anastomotic sutures are present. There is diffuse inflammatory change in this area no small bowel dilatation is appreciated. Uncertain how much of the inflammatory change relates to previous surgery versus infection. There is no low density fluid collection seen at this time to indicate an abscess. Multiple small cysts are seen within the right and left lobes of the liver. Spleen is enlarged with length of 15.6 cm. This is fairly similar to previous exam. Visualized lung bases show nothing acute. Adrenal glands show no nodule. Absent left kidney is noted. Right kidney shows no hydronephrosis or mass. Pancreas shows no discrete abnormality. Aorta shows no aneurysm. No retroperitoneal adenopathy or mesenteric abnormalities are seen. No pelvic mass or adenopathy is seen. Delayed images shows contrast within the right ureter and within the bladder. Bone window settings were reviewed which shows disc space narrowing and vacuum phenomena within the L4-L5 disc. Inflammatory-type change is noted within the anterior abdominal wall which is most likely postsurgical. Impression: 1. Previous right colon surgery with anastomotic sutures being seen. 2. Inflammatory-type change is seen in the area of previous surgery. Uncertain how much of this represents postsurgical change versus possible infection. No abscess is seen at this time. 3. Stable splenomegaly. 4. Other findings believed to be incidental. Diagnostic code #3
[2019-01-23] MEDS ORDERED: HYDROmorphone 0.5 MG/0.5 ML Syringe ONE (11:23)
== END 2019-01-23 12:12 | disposition home or self-care (01) ==
LOC: SUPCPDRO 06:48 → JD.ED 06:48
DX: R10.84 Generalized abdominal pain (principal); I10 Essential (primary) hypertension; K21.9 Gastro-esophageal reflux disease without esophagitis; E78.00 Pure hypercholesterolemia, unspecified; I25.10 Atherosclerotic heart disease of native coronary artery without angina pectoris; E10.21 Type 1 diabetes mellitus with diabetic nephropathy; F41.0 Panic disorder [episodic paroxysmal anxiety]; F32.9 Major depressive disorder, single episode, unspecified; E66.9 Obesity, unspecified; Z68.30 Body mass index [BMI] 30.0-30.9, adult; Z79.4 Long term (current) use of insulin; Z79.899 Other long term (current) drug therapy
CPT/HCPCS: 36415; 74177; 80053; 83605; 83690; 85025; 86140; 96361; 96374; 96375; 96376; 99284; J1170; J2405; J2765; J7040; J7042

== ENCOUNTER 2023-08-21 10:00 | Emergency (ER) | payer MEDICARE, OTHER ==
[2023-08-21 10:32] LABS: BASOPHILS PERCENT AUTO 0.5 % (0.0-1.0); EOSINOPHILS ABSOLUTE AUTO 0.1 K/mm3 (0.0-0.4); EOSINOPHILS PERCENT AUTO 2.9 % (0.0-6.0); HEMATOCRIT 39.6 % (42.0-52.0); HEMOGLOBIN 13.2 gm/dl (14.0-18.0); IMMATURE GRAN ABSOLUTE AUTO 0.01 K/mm3 (0.00-0.05); IMMATURE GRAN PERCENT AUTO 0.2 % (0.0-0.4); LYMPHOCYTES ABSOLUTE AUTO 0.6 K/mm3 (1.0-4.8); LYMPHOCYTES PERCENT AUTO 13.4 % (24.0-44.0); MEAN CORPUSCULAR HEMOGLOBIN 29.3 pg (28.0-32.0); MEAN CORPUSCULAR HGB CONC 33.3 g/dl (32.0-36.0); MEAN CORPUSCULAR VOLUME 87.8 fl (83.0-99.0); MEAN PLATELET VOLUME 11.5 fl (9.4-12.4); MONOCYTES ABSOLUTE AUTO 0.3 K/mm3 (0.0-0.8); NEUTROPHILS ABSOLUTE AUTO 3.4 K/mm3 (1.8-7.7); PLATELET COUNT,PLT 124 K/mm3 (150-400); RED BLOOD CELL COUNT 4.51 M/mm3 (4.52-5.90); WHITE BLOOD CELL COUNT,WBC 4.41 K/mm3 (3.9-11.3)
[2023-08-21 10:37] LABS: APPEARANCE,URINE CLEAR (Clear); BILIRUBIN,URINE NEGATIVE (Negative); COLOR,URINE YELLOW (Yellow); GLUCOSE,URINE TRACE (Negative); KETONES,URINE NEGATIVE (Negative); LEUKOCYTE ESTERASE,URINE NEGATIVE (Negative); NITRITE,URINE NEGATIVE (Negative); OCCULT BLOOD,URINE NEGATIVE (Negative); PROTEIN,URINE NEGATIVE (Negative); UROBILINOGEN,URINE 0.2 (0.2-1.0)
[2023-08-21 10:49] LABS: D-DIMER QUANTITATIVE 0.35 mg/L (0.19-0.50); INR 1.03
[2023-08-21 10:54] LABS: A/G RATIO 1.2 (1-2); ALBUMIN 3.3 g/dl (3.4-5.0); ANION GAP 10.6 (5-15); BILIRUBIN TOTAL 0.7 mg/dL (0.2-1.0); BUN/CREATININE RATIO 13.6 (14-18); CALCIUM 8.4 mg/dL (8.5-10.1); CREATININE 1.1 mg/dL (0.7-1.3); EST CRCL DRUG DOSING (CG) 68.21 mL/min; MAGNESIUM 1.5 mg/dL (1.8-2.4); PHOSPHORUS 2.5 mg/dL (2.6-4.7); POTASSIUM,K 4.6 mEq/L (3.5-5.1); PROTEIN TOTAL,TP 6.1 g/dl (6.4-8.2)
[2023-08-21] MEDS: Magnesium Sulfate/Water 2 GM in Premix Bag 1 BAG IV ONE (13:12)
[2023-08-21] MEDS: Nitroglycerin/D5W 25 MG/250 ML BOTTLE IV SCH (16:29)
[2023-08-21 17:33] VITALS: BP 145/77; PULSE 65
== END 2023-08-21 17:33 ==
LOC: JD.ED 10:00
DX: I25.119 Atherosclerotic heart disease of native coronary artery with unspecified angina pectoris (principal); E83.42 Hypomagnesemia; R94.31 Abnormal electrocardiogram [ECG] [EKG]; I10 Essential (primary) hypertension; E10.40 Type 1 diabetes mellitus with diabetic neuropathy, unspecified; Z79.899 Other long term (current) drug therapy; Z79.4 Long term (current) use of insulin; Z90.49 Acquired absence of other specified parts of digestive tract
CPT/HCPCS: 36415; 71045; 80053; 81003; 83690; 83735; 83880; 84100; 84484; 85025; 85379; 85610; 93005; 96365; 96366; 96367; 99285; J2305; J3475

== ENCOUNTER 2024-10-15 15:18 | Emergency (ER) | payer MEDICARE, OTHER ==
[2024-10-15] MEDS: Ondansetron 4 MG/2 ML SDV IVPUSH ONE (16:26)
[2024-10-15 16:30] LABS: BASOPHILS ABSOLUTE AUTO 0.0 K/mm3 (0.0-0.2); BASOPHILS PERCENT AUTO 0.2 % (0.0-1.0); EOSINOPHILS ABSOLUTE AUTO 0.1 K/mm3 (0.0-0.4); EOSINOPHILS PERCENT AUTO 1.3 % (0.0-6.0); IMMATURE GRAN ABSOLUTE AUTO 0.01 K/mm3 (0.00-0.05); IMMATURE GRAN PERCENT AUTO 0.2 % (0.0-0.4); LYMPHOCYTES ABSOLUTE AUTO 0.6 K/mm3 (1.0-4.8); LYMPHOCYTES PERCENT AUTO 9.3 % (24.0-44.0); MEAN PLATELET VOLUME 11.8 fl (9.4-12.4); MONOCYTES ABSOLUTE AUTO 0.7 K/mm3 (0.0-0.8); MONOCYTES PERCENT AUTO 11.0 % (0.0-8.0); NEUTROPHILS ABSOLUTE AUTO 4.9 K/mm3 (1.8-7.7); NEUTROPHILS PERCENT AUTO 78.0 % (41.0-71.0); NRBC ABSOLUTE 0.00 (0.00-0.02); NRBC PERCENT 0.0 % (0.0-0.2); PLATELET COUNT,PLT 111 K/mm3 (150-400); RED BLOOD CELL COUNT 4.61 M/mm3 (4.52-5.90); WHITE BLOOD CELL COUNT,WBC 6.21 K/mm3 (3.9-11.3)
[2024-10-15 16:40] LABS: A/G RATIO 1.0 (1-2); ALANINE AMINOTRANSFERASE,ALT 29.0 U/L (16-63); ASPARTATE AMNIOTRANSFERASE,AST 21.0 U/L (15-37); BILIRUBIN TOTAL 0.6 mg/dL (0.2-1.0); BLOOD UREA NITROGEN,BUN 18.0 mg/dL (7-18); CARBON DIOXIDE,CO2 30.0 mEq/L (21-32); CHLORIDE,CL 100.0 mEq/L (98-107); CREATINE KINASE,CK 82.0 U/L (39-308); CREATININE 1.2 mg/dL (0.7-1.3); EST CRCL DRUG DOSING (CG) 61.68 mL/min; ESTIMATED GFR 66.0 mL/min (>60); GLUCOSE RANDOM 157.0 mg/dL (70-99); POTASSIUM,K 4.2 mEq/L (3.5-5.1); PROTEIN TOTAL,TP 6.1 g/dl (6.4-8.2); SODIUM,NA 133.0 mEq/L (136-145)
[2024-10-15 17:18] VITALS: BP 104/59; PULSE 58
[2024-10-15] MEDS: LORazepam 2 MG/ML SDV IVPUSH ONE (17:49)
[2024-10-15] MEDS: Ketorolac 30 MG/ML SDV IVPUSH ONE (17:55)
[2024-10-15 19:38] LABS: BUPRENORPHINE SCREEN,URINE NEGATIVE (CUTOFF=10); METHADONE SCREEN, URINE NEGATIVE (CUT0FF=200); METHAMPHETAMINES SCREEN, URINE NEGATIVE (CUTOFF=500); OXYCODONE SCREEN,URINE NEGATIVE (CUT0FF=100); THC SCREEN,URINE 20 NG/ML NEGATIVE (CUTOFF=50)
[2024-10-15 19:39] LABS: AMPHETAMINES SCREEN, URINE NEGATIVE (CUTOFF=500)
== END 2024-10-15 19:45 | disposition home or self-care (01) ==
LOC: JD.ED 15:18
DX: G43.909 Migraine, unspecified, not intractable, without status migrainosus (principal); M54.2 Cervicalgia; E10.9 Type 1 diabetes mellitus without complications; I10 Essential (primary) hypertension; K21.9 Gastro-esophageal reflux disease without esophagitis; E78.00 Pure hypercholesterolemia, unspecified; E66.9 Obesity, unspecified; Z79.4 Long term (current) use of insulin; Z79.899 Other long term (current) drug therapy; Z86.16 Personal history of COVID-19; Z90.49 Acquired absence of other specified parts of digestive tract
CPT/HCPCS: 36415; 70450; 80053; 80306; 82550; 82947; 83690; 83735; 85025; 85652; 86140; 96361; 96365; 96375; 99285; J1171; J1885; J2060; J2405; J2765; J3475; J7030; 99284